=== PATIENT | male | born 1960 | race Caucasian/White ===

== ENCOUNTER 2021-06-10 12:12 | Outpatient (CLI) | payer MEDICAID, SELFPAY ==
[2021-06-10 13:37] LABS: Absolute Neutrophil Count 6.4 X10^3/uL (2.0-7.7); Eosinophil# 0.37 X10^3/uL; Eosinophils% 3.7 % (0-5); Hematocrit 42.8 % (40-54); Hemoglobin 13.6 g/dL (13.0-16.5); Mean Corp Hgb Conc 31.8 g/dL (32-36); Mean Corpuscular Hgb 21.4 pg (27.0-32.0); Mean Corpuscular Volume 67.4 fL (80-94); Mean Platelet Vol. 10.7 fl (6.2-12.0); Monocyte# 0.74 X10^3/uL; Monocyte% 7.4 % (0-10); NRBC Flagged by Analyzer 0.2 % (0-5); Neutrophil # 6.42 X10^3/uL (2.7-7.7); Neutrophil % 64.4 % (47-70); Platelet Count 331 K/mm3 (150-450); RBC Distribution Width CV 17.8 % (11.6-14.6); RBC Distribution Width SD 38.1 fl (35.1-43.9); Red Blood Count 6.35 M/mm3 (4.6-6.2)
[2021-06-10 14:02] LABS: ALB/GLOB Ratio 0.8 RATIO (0.9-2.4); AST(SGOT) 26 U/L (15-37); Alanine Aminotransfer ALT/SGPT 28 U/L (16-61); Albumin, Serum 3.6 g/dL (3.2-5.0); Alkaline Phosphatase 98 U/L (45-117); Anion Gap 6 (5-15); BUN 15 mg/dL (7-18); BUN/Creat Ratio 13.2 RATIO (10-20); Calcium,Total 8.9 mg/dL (8.5-10.1); Chloride 100 mmol/L (98-107); Cholesterol 171 mg/dL (200); Creatinine, Serum 1.14 mg/dL (0.70-1.30); EST Glomerular Filtration Rate 69 mL/min (>60); Est Glom Filt Rate - Afr Amer 84 mL/min (>60); Globulin 4.3 g/dL (2.2-4.2); Glucose 99 mg/dL (74-106); High Density Lipoprotein 45 mg/dL; Potassium 3.5 mmol/L (3.5-5.1); Protein, Total 7.9 g/dL (6.4-8.2); Sodium Level 136 mmol/L (136-145); Thyroid Stim Hormone (TSH) 1.47 uIU/mL (0.358-3.74); Triglycerides 156 mg/dL; Very Low Density Lipoprotein 31 mg/dL (5-40)
== END 2021-06-10 23:59 | disposition short-term general hospital (02) ==
LOC: LAB 12:19
PROVIDERS: Referring Provider Nurse Practitioner Adult Health; Visit Provider Nurse Practitioner Adult Health
DX: Z12.5 Encounter for screening for malignant neoplasm of prostate (principal)
CPT/HCPCS: 84153; 36415; 80053; 80061; 84443; 85025; G0103

== ENCOUNTER 2022-08-12 13:00 | Outpatient (RCR) | payer MEDICAID, SELFPAY ==
--- NOTE | 2022-06-30 15:16 | HP.SP.EV_ITS ---
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 Patient underwent total laryngectomy, right partial pharyngectomy, right wily- thyroidectomy, and right selective neck dissection levels 2?4. Pt referred for speech evaluation to address dysphagia and to assess/train in alaryngeal speech. Pt currently has PEG tube placed. He is planned for radiation beginning . 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 Patient underwent total laryngectomy, right partial pharyngectomy, right wily- thyroidectomy, and right selective neck dissection levels 2?4. Pt referred for speech evaluation to address dysphagia and to assess/train in alaryngeal speech. Pt currently has PEG tube placed. He is planned for radiation beginning . Smoking Status: Former smoker - Pain Is pain an issue with your current prescribed condition?: No Patient Allergies - Allergies Allergies No Known Allergies Allergy (Unverified 06/22/22 15:00) Subjective Dysphagia - Symptoms Reported Other: PEG tube dependence - Current Diet Solids Current Diet: Soft - Current Diet Liquids Current Liquids: Thin - NPO NPO - Alternative Nutrition Method: Gastrostomy Tube - Comments Patient Report -: No concerns for retention of food and drink. Pt unable to eat regular solids due to teeth extraction. Pt requires 2 PEG tube supplements daily. He reports yesterday consuming 2 chocolate bars, 1/2 bowl of cereal, mac n cheese, 1/2 gallon of water, and 2 cups of juice. Objective Dysphagia - Administered by Administered by: Self - Thin Liquids Administred via: Cup Oral Transit: WNL Bolus clearance: fully cleared Cough: none observed/unable to assess Patient Report: Pt reports no sensation of retention in neopharynx or esophagus. - Pureed Patient Report: Pt reports no sensation of retention in neopharynx or esophagus. - Regular Comments: Pt politely declined due to recent extraction of teeth. - Swallowing Impairment Contributing Factors to Swallowing Impairment: Mastication Inefficiency - Impact Impact on Safety & Functioning: Risk for Inadequate Nutrition/Hydration - Recommendations Modified Barium Swallow/Cookie Swallow Recommended: No Swallowing Treatment: Yes - Diet Texture Recommendations Solids: Soft & Bite sized (Level 6, Chopped) Liquids: Thin (Level 0) NPO: Alternative Nutrition/Hydration Recommended Other: Continue to supplement oral intake with PEG tube supplements as needed. Pt is following with nurse substance abuseNathalia. - Safety Saftey Precautions/Swallowing Recommendations (Check all that Apply): Small Sips & Bites when Eating, Alternate Liquids & Solids - Results Swallowing Within Normal Limits: No Swallowing Diagnosis: Oral Phase Dysphagia (R13.11) Severity: Mild Subjective Oral Motor - Subjective Patient Reports: Difficulty being Understood - Comments Comments: No facial numbness. Pt does report numbness on R anterior neck. Objective Oral Motor - Oral Status Additional: Edentulous, teeth extracted prior to initiation of radiation treatment. - Labial Impairment: WNL Observation at Rest: WNL Closure: WNL Pucker: WNL Retraction: WNL Alternating Pucker/Retraction: WNL - Lingual Impairment: WNL Protrusion: WNL Retraction: WNL Lateralization: WNL - Jaw Impairment: Mild Symmetry, Range, Strength, Tone: Did not assess jaw musculature as pt didn't want to bite down due to jaw pain likely related to recent dental work completed. Opening: Mild Opening Measurement: 33mm lip to lip - Jaw Comments Comments: Pt reports increased jaw tightness. - Respiratory Status Respiratory Status: Room Air Comments: Stoma with larytube and HME present. Swallowing Performance Scale - Swallowing Performance Scale Swallowing Performance Scale Result: 3 Mild FOIS - Functional Oral Intake Scale Tube dependent with consistent oral intake of food or liquid: Level 3 Other - Other Informal Assessment of Alaryngeal Speech -: With exception of jaw tightness, the patient demonstrated good oral motor strength, ROM, and coordination. He is currently not utilizing electrolarynx (very rarely per patient). He utilizes [employer] board and email for a majority of communication exchanges and reports that overall communication has been very challenging since total laryngectomy. [employer] provided education re: alaryngeal speech options, including electrolarynx (present for session), esophageal speech, and tracheoesophageal puncture w/ voice prosthesis. D[employer]CH[employer]IC provided education verbally and via video demonstrations. Pt reports no desire for attempting esophageal speech. He would like further training in electrolarynx (EL). Trained pt in placement options for EL in neck and with use of oral adaptor in L buccal cavity. Pt preferred use of oral adaptor in L buccal cavity. At word level, pt initially was intelligible counting 1-10 with 100% accuracy, 11-20 with 40% acc. D[employer]TER MECH[employer]IC provided the patient brief diagnostic therapy re: strategies to improve speech clarity with use of EL. Education provided verbally and via handout. Pt repeated counting 11-20 with 60% acc. Pt feels he is currently unable to use EL to participate in conversation with others. He was reluctant to respond to D[employer]TER [employer]CH[employer]IC with EL initially, but did successfully answer one question from [employer]CH[employer]IC with use of EL at the end of the evaluation. Will recommend continued training in use of EL with use of strategies to improve speech clarity to promote improved speech intelligibility and better communication abilities to meet daily, medical, and social wants and needs. Pt agreeable to recommended POC. History for Larytube, Stoma, and HME Management -: Pt currently reports no concerns for hygiene deficits re: stoma and larytube care. Stoma and larytube did present with crusted secretions in stoma around larytube. He reports cleaning stoma with a wet cloth. He reports cleaning larytube 1-2X daily with use of a brush, soap, and water. No use of water-based lubricant required to place larytube. Pt uses an HME on larytube 24 hours a day. He reports using 1-2 HMEs per day. D[employer]CH[employer]IC provided brief diagnostic education re: stoma, larytube, and HME care. Pt would benefit from continued education to promote improved management of stoma and larytube to decrease risk for infect ion. Plan - Plan Plan: Dysphagia and speech production therapy recommended to address mild oral dysphagia with current PEG tube dependence and to train pt in use of electrolarynx to address aphonia s/p total laryngectomy for cancer of the larynx. Without skilled ST services, the patient is at risk for weight loss, malnutrition, and decreased ability to communicate basic, daily, social, and medical wants and needs. - Recommendations MBS: No Treatment Warranted: Yes Treatment Warranted: Other: Comment: Training in electrolarynx for aphonia - Progress Prognosis: Good - Frequency Frequency: 1x/Week Duration: 4-6 Months - Patient/Family Goal Patient/Family Goal: Improve speech with use of electrolarynx. - Goals that are Established Determination:: Goals will be added/modified as deemed necessary and appropriate. Therapy will be discontinued when results of re-evaluation indicate therapy is no longer needed or lack of progress has been documented. - Goal #1-5 Goal #1: The patient will accurately demonstrate routine care of HME, larytube, and stoma (cleaning stoma/larytube, donning/doffing/replacing HME) to promote improved hygiene and decrease risk for infection independently. Goal #2: The patient will participate in ongoing education re: HME, larytube, and stoma management to promote improved hygiene and decrease risk for infection. Goal #3: The patient will produce word and sentence level responses with use of electrolarynx with 90% intelligibility with minimal verbal cues for use of compensatory strategies. Goal #4: The patient will utilize electrolarynx to communicate daily, medical, and social wants and needs independently. Goal #5: The patient will consume least restrictive diet textures without esophageal discomfort, sensation of stasis, or oral/nasal regurgitation with 90% accuracy with minimal verbal cues for use of compensatory strategies to improve swallow function. Education - Patient has Indicated that the Following Identified Educational Needs: None The Patient has indicated that they have no educational or learning abilities that may effect their care.: Yes - Patient Instruction Patient Education: Diagnosis, Treatment Plan, Goals Person Taught: Patient Teaching Method: Discussion, Handout Response to teaching: Return demonstration, Verbalize understanding, Reinforcement needed
== END 2022-08-12 19:00 | disposition home or self-care (01) ==
LOC: SP 13:00
PROVIDERS: Referring Provider Student in an Organized Health Care Education/Training Program; Visit Provider Student in an Organized Health Care Education/Training Program
DX: C32.9 Malignant neoplasm of larynx, unspecified (principal)
CPT/HCPCS: 92507; 92524; 92526; 92610; A4216

== ENCOUNTER 2022-09-16 14:30 | Outpatient (RCR) | payer MEDICAID, SELFPAY | END 2022-10-13 23:59 | LOC: NS 14:30 | PROVIDERS: Visit Provider Student in an Organized Health Care Education/Training Program | DX: Z71.3 Dietary counseling and surveillance (principal); C32.9 Malignant neoplasm of larynx, unspecified; R63.4 Abnormal weight loss; Z68.20 Body mass index [BMI] 20.0-20.9, adult | CPT/HCPCS: 97803 ==

== ENCOUNTER → 2022-12-13 | Outpatient (CLI) | payer MEDICAID, SELFPAY ==
--- NOTE | 2022-12-13 16:59 | CT_ITS ---
EXAM: CT CHEST WITH INTRAVENOUS CONTRAST CLINICAL INDICATION: abnormal LN on PET in chest -- eval for lesion TECHNIQUE: Helically acquired images were obtained of the chest with intravenous contrast. This CT exam was performed using one or more of the following dose reduction techniques: automated exposure control, adjustment of the mA and/or kV according to patient size, and/or use of iterative reconstruction technique. CONTRAST: IV 100mL Isovue-300 COMPARISON: PET/CT scan dated 11/29/2022 FINDINGS: LUNGS AND PLEURAL SPACES: Unremarkable. No mass. No consolidation or edema. No pleural effusion or thickening. No pneumothorax. HEART: Unremarkable. Heart size is normal. No pericardial effusion. MEDIASTINUM: Unremarkable. No mediastinal or hilar adenopathy. Esophagus is unremarkable. No hiatal hernia. THYROID: Unremarkable. No thyroid lesions. BONES/JOINTS: There are healing fractures of the anterior right fifth through seventh ribs. No suspicious lytic or blastic abnormality. SOFT TISSUES: There is a low-density lesion in the subcutaneous tissues of the right lower chest which may represent a sebaceous cyst that measures 1.5 x 2.7 cm. This showed no metabolic activity on the PET CT scan. VASCULATURE: Unremarkable. Thoracic aorta is non-dilated. No thoracic aortic dissection. No obvious central pulmonary embolism although this study was not performed with the pulmonary embolism protocol. LYMPH NODES: There is a soft tissue in the right hilum which corresponds to the focus of increased metabolic activity on the PET CT scan and measures 1.8 x 1.9 x 1.4 cm. This may represent a lymph node. TUBES, LINES AND DEVICES: Tracheostomy tube is in place. There is a percutaneous gastrostomy tube in place. CT/Chest WITH Contrast IMPRESSION: 1. Soft tissue in the right hilum which is metabolically active on PET CT scan which may represent adenopathy. There are no pulmonary abnormality. 2. Healing anterior right ribs. Electronically Signed: David Ramachandran MD at 16:34 EDT ,
[2022-12-13 17:22] LABS: CREATININE FINGERSTICK < 0.9 mg/dL (0.70-1.30); EGFR FINGERSTICK > 60.0000 mL/min (>60)
== END | disposition home or self-care (01) ==
LOC: CT 16:55
PROVIDERS: Visit Provider Student in an Organized Health Care Education/Training Program
DX: C32.9 Malignant neoplasm of larynx, unspecified (principal); R94.8 Abnormal results of function studies of other organs and systems
CPT/HCPCS: 71260; Q9967; A4216

== ENCOUNTER 2022-12-16 14:52 | Outpatient (RCR) | payer MEDICAID, SELFPAY | END 2023-01-13 23:59 | LOC: NS 14:52 | PROVIDERS: Visit Provider Student in an Organized Health Care Education/Training Program | DX: C32.9 Malignant neoplasm of larynx, unspecified (principal); R63.4 Abnormal weight loss | CPT/HCPCS: 97803 ==

== ENCOUNTER → 2023-03-04 | Outpatient (CLI) | payer MEDICAID, SELFPAY ==
--- NOTE | 2023-03-04 16:55 | CT_ITS ---
INDICATION: Right hilar abnormality follow-up, history of head and neck cancer EXAMINATION: CT CHEST WITH CONTRAST - CT Chest W/ Contrast Injection TECHNIQUE: Helically acquired images were obtained of the chest following IV contrast. A radiation dose optimization technique was used for this scan. IV Contrast dosage and agent: 100 cc Isovue-300 COMPARISON: Chest CT 12/13/2022, PET/CT 11/29/2022 FINDINGS: LUNGS, PLEURA AND LARGE AIRWAYS: Stable left apical fibrosis. No consolidations, mass lesions or suspicious nodules. Small right pleural effusion. No pneumothorax. THYROID: Right thyroidectomy changes. HEART AND PERICARDIUM: Heart size is normal. No pericardial effusion. VESSELS: Thoracic aorta is not dilated. No aortic dissection. No obvious central pulmonary embolism although this study was not performed with the pulmonary embolism protocol. MEDIASTINUM AND NÉSTOR: Right hilar lymph node measures 1.6 x 1.4 x 1.0 cm, decreased from prior measurement of 1.9 x 1.8 x 1.4 cm. No new adenopathy. Esophagus is unremarkable. No hiatal hernia. UPPER ABDOMEN: No acute pathology. PEG tube tip in the gastric lumen. BONES: Persistent healing right rib fractures #5 through 7. Cutaneous soft tissue lesion over the right lower chest anterior wall currently 2.9 cm compared to previous 2.7 cm. This lesion was not hypermetabolic on the preceding PET CT study. CT/Chest WITH Contrast IMPRESSION: Interval decrease in size of the right hilar lymph node, regression of disease. Interval development of small right pleural effusion. Electronically Signed: Abel Kumar MD at 20:24 EDT ,
--- NOTE | 2023-03-04 16:55 | CT_ITS ---
INDICATION: follow up treated head and neck cancer EXAMINATION: CT NECK WITH CONTRAST - CT Soft Tissue Neck W/ Contrast Injection TECHNIQUE: Helically acquired images were obtained of the neck following IV contrast. A radiation dose optimization technique was used for this scan. IV Contrast dosage and agent: 100 cc Isovue-300 RADIATION DOSAGE (If Supplied By Facility): CTDIvol = ( 10.02 ) mGy, DLP = ( 879.84 ) mGycm COMPARISON: Prior study dated: PET/CT scan 11/29/2022 FINDINGS: NASOPHARYNX: Unremarkable. SUPRAHYOID NECK: Unremarkable oropharynx, oral cavity, parapharyngeal space, and retropharyngeal space. INFRAHYOID NECK: Laryngectomy changes. Multiple surgical clips present. No enhancing masses. THYROID: Right lobe thyroid absent. SALIVARY GLANDS: Right submandibular gland absent. LYMPH NODES: No cervical or supraclavicular lymphadenopathy. VASCULAR STRUCTURES: Unremarkable. VISUALIZED PORTIONS OF THE ORBITS, PARANASAL SINUSES, MASTOID AIR CELLS AND SKULL BASE: Ethmoid and maxillary sinus mucoperiosteal disease. BONES: Mild degenerative changes. THORACIC INLET: Stable fibrosis left apex medially. CT/Soft Tissue Neck WITH Contrast IMPRESSION: Surgical changes from laryngectomy and right sided neck dissection. No findings suspicious for metastatic disease and no significant interval change from the reference PET/CT study. Electronically Signed: Abel Kumar MD at 19:53 EDT ,
[2023-03-04 17:17] LABS: CREATININE FINGERSTICK < 0.9 mg/dL (0.70-1.30); EGFR FINGERSTICK > 60.0000 mL/min (>60)
== END | disposition home or self-care (01) ==
LOC: CT 16:51
PROVIDERS: Referring Provider Student in an Organized Health Care Education/Training Program; Visit Provider Student in an Organized Health Care Education/Training Program
DX: C32.9 Malignant neoplasm of larynx, unspecified (principal); C77.9 Secondary and unspecified malignant neoplasm of lymph node, unspecified; R94.8 Abnormal results of function studies of other organs and systems
CPT/HCPCS: 70491; 71260; Q9967

== ENCOUNTER 2023-03-08 15:06 | Outpatient (RCR) | payer MEDICAID, SELFPAY | END 2023-03-15 23:59 | LOC: NS 15:06 | PROVIDERS: Visit Provider Student in an Organized Health Care Education/Training Program | DX: Z71.3 Dietary counseling and surveillance (principal); C32.9 Malignant neoplasm of larynx, unspecified; R63.4 Abnormal weight loss; Z93.1 Gastrostomy status | CPT/HCPCS: 97803 ==

== ENCOUNTER 2023-04-19 10:54 | Outpatient (RCR) | payer MEDICAID, SELFPAY ==
--- NOTE | 2023-04-12 10:52 | HP.SP.DC ---
Discharge Summary Discharged: Discharge: Patient was evaluated by OP ST 06/30/2022 for dysphagia and speech production therapy to address mild oral dysphagia with current PEG tube dependence and to train pt in use of electrolarynx to address aphonia s/p total laryngectomy for cancer of the larynx. He attended 3 sessions from 07/07/2022 to 08/26/2022, and has not returned for additional visits. Per most recent radiation oncology follow-up, he has no additional speech therapy needs and has not returned emails from RN about re-scheduling with . Will discharge the patient from at this time. Please re-consult if the patient requires additional training in alaryngeal speech or worsening dysphagia.
== END 2023-04-19 10:55 | disposition home or self-care (01) ==
LOC: OT 10:54
PROVIDERS: Referring Provider Student in an Organized Health Care Education/Training Program; Visit Provider Student in an Organized Health Care Education/Training Program
DX: I89.0 Lymphedema, not elsewhere classified (principal)

== ENCOUNTER → 2023-08-03 | Outpatient (CLI) | payer MEDICAID, SELFPAY ==
[2023-08-03 15:18] LABS: Platelet Count 168 K/mm3 (150-450)
[2023-08-03 15:23] LABS: International Normalized Ratio 1.1; Prothrombin Time (Protime)PT. 13.8 SECONDS (11.7-14.9)
[2023-08-03 15:50] LABS: Partial Thromboplast Time < 24.0 Seconds (24.1-36.2)
== END | disposition home or self-care (01) ==
LOC: LAB 14:27
PROVIDERS: Referring Provider Nurse Practitioner Acute Care; Visit Provider Nurse Practitioner Acute Care
DX: R06.00 Dyspnea, unspecified (principal); I48.91 Unspecified atrial fibrillation
CPT/HCPCS: 36415; 85049; 85610; 85730

== ENCOUNTER → 2023-10-07 | Outpatient (CLI) | payer MEDICARE, MEDICAID, SELFPAY ==
--- NOTE | 2023-10-07 15:07 | CT_ITS ---
INDICATION: follow up PET abnormality -- compare to prior EXAMINATION: CT NECK WITH CONTRAST - CT Maxillofacial and Neck W/ Contrast Injection COMPARISON: Neck CT 03/12/2023. PET/CT 06/21/2023 as well as 11/29/2022.. Findings: Contrast enhanced serial CT axial images through the orbits, extending through the face and neck with coronal and sagittal reformatted series. IV Contrast dosage and agent: 75 cc Isovue-370 IV. SKULL BASE: Visualized brain parenchyma is unremarkable. ORBITS: No obvious acute globe abnormality. No infiltration the orbital fat. SOFT TISSUES: No obvious vascular abnormality. Bilateral post procedure dissection changes with numerous surgical clips and distortion of soft tissue planes. Tracheostomy tube is in place. Stable hazy fat stranding of the deep tissues of the neck, likely scarring. There is a small ovoid asymmetric soft tissue density measuring 6 x 9 mm (just posterior to muscle abutting the posterior jugular vein at the level of C1 lateral mass and caudal aspect of the mastoid process) on axial image 74 of series 2, which appears to correlate with focal increased FDG avidity on recent PET/CT of 3 months prior. However, this same soft tissue abnormality was seen on neck CT of February 2023. No focal fluid collection. Stable anterior right upper lobe 5 mm groundglass pulmonary nodule on axial image 7 of series 2, stable from only 10 months prior. OSSEOUS STRUCTURES: No TMJ subluxation. Moderate to severe multilevel bilateral neuroforaminal narrowing. There is also at least moderate central bony spinal canal stenosis at the C3-C4 and C5-C6 levels. Pansinus mucosal thickening with numerous bilateral maxillary sinus retention cysts. No evidence of cervical spine fracture or subluxation. No concerning bony lesion or abnormal sclerosis to suggest lesion. CT/Soft Tissue Neck WITH Contrast IMPRESSION: 6 x 9 mm ovoid ASYMMETRIC soft tissue density as described above which appears to correlate with focal increased FDG avidity on recent PET/CT of 3 months prior. However, this focal soft tissue asymmetry was seen on neck CT of February 2023 (although without previous FDG avidity seen). While this may represent focal subcentimeter reactive lymph node or muscular inflammatory focus, cannot exclude early recurrent FDG avid metastatic focus. Stable 5 mm pulmonary nodule, stable from only 10 months prior. Neuroforaminal narrowing and central bony spinal canal stenosis. Sinus disease. Electronically Signed: Davidson Jack MD at 3:46 EDT ,
[2023-10-07 15:33] LABS: CREATININE FINGERSTICK < 1.0 mg/dL (0.70-1.30); EGFR FINGERSTICK > 60.0000 mL/min (>60)
== END | disposition home or self-care (01) ==
PROVIDERS: Referring Provider Student in an Organized Health Care Education/Training Program; Visit Provider Student in an Organized Health Care Education/Training Program
DX: C32.9 Malignant neoplasm of larynx, unspecified (principal)
CPT/HCPCS: 70491; Q9967

== ENCOUNTER 2024-09-10 11:42 | Day surgery (SDC) | payer MEDICARE, MEDICAID, SELFPAY ==
--- NOTE | 2024-09-10 12:08 | PCM.PRE.AN2 ---
ASA Classification* ASA Classification ASA Classification: 3 Assessment & Plan Anesthesia* Anesthesia Assessment Anesthesia Assessment: Discussed sedation and/or anesthesia options, risks, benefits, and alternatives with patient/parents/legal guardian/POA. Questions invited. The patient/parents/legal guardian/POA seems to understand and agrees to proceed with anesthesia plan. Reviewed the physical assessment, medical history, allergy history and patient home medications list prior to surgery/procedure/anesthetic and documented any changes. Performed airway and anesthesia risk assessments. Anesthesia Type Anesthesia Type: MAC Anesthesia Focused Assessment* Airway Assessment Mouth opens: >3 cm Mallampati Score: II Focused Labs Anesthesia Preop lab: CBC WBC 6.1 K/mm3 (4.4-11.0) 09/03/24 12:48 09/03/24 RBC 3.19 M/mm3 (4.6-6.2) L 09/03/24 12:48 09/03/24 Hgb 8.4 g/dL (13.0-16.5) L 09/03/24 12:48 09/03/24 Hct 24.8 % (40-54) L 09/03/24 12:48 09/03/24 Plt Count 270 K/mm3 (150-450) 09/03/24 12:48 09/03/24 CHEMISTRY Potassium 3.1 mmol/L (3.3-5.1) L 09/03/24 12:48 09/03/24 Sodium 142 mmol/L (133-145) 09/03/24 12:48 09/03/24 Magnesium 2.0 mg/dL (1.6-2.6) 06/22/22 15:45 06/22/22 Phosphorus 2.5 mg/dL (2.7-4.5) L 09/03/24 12:48 09/03/24 BUN 8 mg/dL (4-19) 09/03/24 12:48 09/03/24 Creatinine 0.94 mg/dL (0.70-1.20) 09/03/24 12:48 09/03/24 Glucose 84 mg/dL (70-99) 09/03/24 12:48 09/03/24 TSH 139.000 uIU/mL (0.300-4.200) H 09/03/24 12:48 09/03/24 COAG PT 13.8 SECONDS (11.7-14.9) 08/03/23 14:31 08/03/23 Pre-Assessment Diagnosis/Proposed Procedure Planned Operative Procedure(s): Insertion vasular port Anesthesia History Anesthesia History - 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 When Was Last Pacemaker Check QUESTION #4 FULL TEXT: You/Your Family Experience fever (hyperthermia) with Anesthesia Last Oral Intake Last Oral intake: Last Oral Intake NPO since Meds taken in AM with sips of water? Meds patient instructed to take am of surgery PONV PONV - profile stitching machine operator: PONV - profile stitching machine operator Female HX of Motion Sickness HX of N/V After Surgery Non-Smoker Duration of Surgery greater than 60 minutes Number of Risk Factors PONV Score Height & Weight Height & Weight: Anesthesia: Height & Weight Height 5 ft 7 in 09/03/24 13:07 Weight: 79.379 kg 08/15/24 08:48 Respiratory Assessment Respiratory Assessment - profile stitching machine operator: Respiratory Tract Infection Hx - profile stitching machine operator Hx Respiratory Tract Infection STOP Sleep Apnea STOP Sleep Apnea - profile stitching machine operator: STOP Sleep Apnea - profile stitching machine operator Hx Hypertension Hx Sleep Apnea CPAP BIPAP Do you snore loudly (louder than talking or can be heard Do you often feel tired/ fatigued/ sleepy during daytime? Has anyone observed you stop breathing during sleep? STOP Results QUESTION #5 FULL TEXT : Do you snore loudly (louder than talking or can be heard through closed doors)? Tobacco Use History Tobacco Use History - profile stitching machine operator: Tobacco Use History - profile stitching machine operator Tobacco Use Smoking Status Former smoker 09/04/24 09:01 Hx Tobacco Use Years Smoking Packs Smoked per Day Smoking Cessation Date was within the last 15 years Hx Smoking Cessation Date Hx Smoking Cessation Counseling Hematologic Medial History Hematologic Hx - profile stitching machine operator: Hematologic Medical Hx - motor tester Hx of Blood Transfusion Hx of Transfusion in last 3 Months Date of Last Transfusion (if within last 3 months) Ever experience any problems with transfusion(s)? Specify any problems Hx of Preganancy in last 3 Months Nurse Filling Out Transfusion & Questions: Date: Time: Patient unable to answer at this time (ie. confused, unrespo /Reproduction History /Reproductive History - profile stitching machine operator: /Reproductive Hx- profile stitching machine operator Hx Now Gestational Age (in weeks): EDC: Hx Hx Para Hx Section SAB Active Medications Active Medications: Current Medications Generic Name Dose Route Start Last Admin Trade Name Freq PRN Reason Stop Dose Admin Cefazolin Sodium 2 gm/ N/A 20 mls @ 400 mls/hr 09/10/24 14:00 IV 09/10/24 14:02 INTRAOP ONE Lactated Ringer's 1,000 mls @ 15 mls/hr 09/10/24 12:00 IV .Q48H [facility] Medical History Encounter for antineoplastic immunotherapy Anemia Encounter for education Metastasis to mediastinal lymph node Metastasis to lung Thalassemia trait Regional lymph node metastasis present Dysphagia Malnutrition Hematoma Tracheostomy in place PEG (percutaneous endoscopic gastrostomy) adjustment/replacement/removal Airway obstruction HTN (hypertension) COPD (chronic obstructive pulmonary disease) Laryngeal cancer Home Medications ?Medication ?Instructions ?Recorded ?Last Taken ?Type acetaminophen 160 mg/5 mL (5 mL) 640 mg PO Q4H PRN 05/31/22 Unknown History oral solution amlodipine 10 mg tablet 10 mg PO DAILY 05/31/22 Unknown History chlorpheniramine 2 mg-DM 10 1 tab PO Q4H PRN 05/31/22 Unknown History mg-acetaminophen 325 mg tablet hydroxyzine HCl 25 mg tablet 25 mg PO QHS 05/31/22 Unknown History metoprolol tartrate 25 mg tablet 25 mg PO DAILY 05/31/22 Unknown History miscellaneous medical supply 05/31/22 Unknown History famotidine 20 mg tablet 20 mg PO DAILY 12/02/22 Unknown History (Zantac-360 (famotidine)) mirtazapine 15 mg tablet 45 mg PO QHS 07/29/23 Unknown History quetiapine 50 mg tablet 25 mg PO QHS 07/29/23 Unknown History sertraline 100 mg tablet 150 mg PO DAILY 07/29/23 Unknown History lidocaine-prilocaine 2.5 %-2.5 % 1 applic topical ONCE PRN Port 07/31/24 Unknown Rx topical cream access 30 days #30 grams potassium chloride 20 mEq/15 mL 10 meq (7.5 mL) PO QDAY #450 mL 09/03/24 Unknown Rx oral liquid Allergy/AdvReac Type Severity Reaction Status Date / Time No Known Allergies Allergy Verified 09/03/24 13:14 Family History Uncle Laryngeal cancer maternal Surgical History History of bronchoscopy H/O partial laryngectomy S/P laryngectomy Social History Smoking Status: Former smoker Tobacco: How many years used: 30 how long ago did patient quit smokin years ([id number]) alcohol intake: current alcohol intake frequency: a few times a week substance use type: does not use Review of Systems (Anesthesia) ROS Narrative System reviewed and no additional complaints, except as documented.
[2024-09-10 12:09] VITALS: BP 123/72; PULSE 79; RESP 16; TEMP 36.2; O2SAT 100; BMI 22.6
--- NOTE | 2024-09-10 12:10 | HP.PCM.SX_ITS ---
HPI - General General Date of Service: 09/10/24 HPI Narrative DEMETRIUS BARLOW, is a 63 M who presents for port placement. Patient did have his first treatment and is scheduled for another treatment in 2 weeks due to metastatic squamous cell carcinoma of the larynx to the lungs. 07/30/2024 office visit HPI HPI: 63-year-old male presents for port placement. Plan to start treatment mid August. Patient previously had trach and laryngectomy due to squamous cell carcinoma and has new metastatic disease to lungs. Patient mostly communicates by writing on a board. [facility] Medical History Encounter for antineoplastic immunotherapy Anemia Encounter for education Metastasis to mediastinal lymph node Metastasis to lung Thalassemia trait Regional lymph node metastasis present Dysphagia Malnutrition Hematoma Tracheostomy in place PEG (percutaneous endoscopic gastrostomy) adjustment/replacement/removal Airway obstruction HTN (hypertension) COPD (chronic obstructive pulmonary disease) Laryngeal cancer Home Medications ?Medication ?Instructions ?Recorded ?Last Taken ?Type acetaminophen 160 mg/5 mL (5 mL) 640 mg PO Q4H PRN Unknown History oral solution amlodipine 10 mg tablet 10 mg PO DAILY 05/31/22 Unkn own History chlorpheniramine 2 mg-DM 10 1 tab PO Q4H PRN 05/31/22 Unknown History mg-acetaminophen 325 mg tablet hydroxyzine HCl 25 mg tablet 25 mg PO QHS 05/31/22 Unk nown History metoprolol tartrate 25 mg tablet 25 mg PO DAILY Unknown History miscellaneous medical supply 05/31/22 Unknown History famotidine 20 mg tablet 20 mg PO DAILY 12/02/22 Unkn own History (Zantac-360 (famotidine)) mirtazapine 15 mg tablet 45 mg PO QHS 07/29/23 Unknow n History quetiapine 50 mg tablet 25 mg PO QHS 07/29/23 Unknow n History sertraline 100 mg tablet 150 mg PO DAILY 07/29/23 Unk nown History lidocaine-prilocaine 2.5 %-2.5 % 1 applic topical ONCE PRN Port 07/31/24 Unknown Rx topical cream access 30 days #30 grams potassium chloride 20 mEq/15 mL 10 meq (7.5 mL) PO QDA Y #450 mL 09/03/24 Unknown Rx oral liquid Allergy/AdvReac Type Severity Reaction Status Date / Time No Known Allergies Allergy Verified 09/03/24 13:14 Family History Uncle Laryngeal cancer maternal Surgical History History of bronchoscopy H/O partial laryngectomy S/P laryngectomy Social History Smoking Status: Former smoker Tobacco: How many years used: 30 how long ago did patient quit smokin years ([id number]) alcohol intake: current alcohol intake frequency: a few times a week substance use type: does not use Vital Signs Vital Signs Vital Signs: Weight Weight: 175 lb Physical Exam Const alert, oriented x3 and no apparent distress HEENT normocephalic HEENT Narrative: Trach in place, well-healed previous neck incisions. Cardio regular rate GI Negative for non-distended Skin no rashes or lesions noted Neuro CN's II-XII intact bilaterally Psych mental status grossly normal Assessment & Plan Assessment/Plan (1) Primary squamous cell carcinoma of larynx: (2) Encounter for insertion of venous access port: PLAN: Plan I have discussed above with the patient- Port-a-Cath placement. Right possible left IJ Patient has been counseled as to the risks/benefits of the procedure. I have explained the risks of the surgery, including but not limited to: infection, bleeding, injury to any blood vessels/nerves, injury to lungs (such as pneumothorax or hemothorax and need for chest tube), not having any access, nonfunctioning of port due to thrombosis, infection of port, etc. the patient understands and agrees to proceed. I have answered all the patient's questions to the patient?s satisfaction and the patient has no further questions. Christiana Huber M.D. Pager: [phone] [facility] [address] [place] [address], [address] [place] [address] Office: [phone]
[2024-09-10] MEDS: Lactated Ringers 1,000 ML 15 ML IV (12:39)
[2024-09-10] MEDS: Cefazolin 2 GM in Syringe IV (13:35)
[2024-09-10] MEDS: Lidocaine 1% /Epi 1:100 (20ml) 20 ML Vial (13:39)
[2024-09-10] MEDS: Bupivacaine Mpf 0.5% 30 ML VIAL (13:39)
--- NOTE | 2024-09-10 13:53 | OP.PCM_ITS ---
Operative Report (Standard) Operative Information Date of Procedure: 09/10/24 Pre-Operative Diagnosis: Z45.2, metastatic squamous cell carcinoma of larynx Post-Operative Diagnosis: Same Surgery/Procedure Performed: Placement of right IJ Port-A-Cath, Use of ultrasound, Use of fluoroscopy director of market intelligence: No Type of Anesthesia: Local MAC RN Documented Start/Stop Times: Operation Date: 09/10/24 14:00 Case Time Into Pre-Op 09/10/24 11:56 Anesthesia Start 09/10/24 13:05 Into Room 09/10/24 13:05 Out of Pre-Op 09/10/24 13:05 Procedure Start 09/10/24 13:21 Procedure End 09/10/24 13:49 Anesthesia End 09/10/24 13:53 Out of Room 09/10/24 13:53 Into Recovery 09/10/24 13:58 Procedure Start Time: 13:21 Procedure Stop Time: 13:49 Select all DRAINS/GRAFTS/IMPLANTS that apply: Implanted device Implanted device details: 6 Telugu BARD Port-A-Cath Special Medications: Ancef 2 g IV x 1 Estimated Blood Loss: < 10 cc Specimen collected: No Description of surgery: After informed consent was given, the patient was brought to the operating room and placed in the supine position. Appropriate time out protocol was followed. Patient was then given IV conscious sedation for anesthesia. The patient's right upper chest and neck were then prepped with a surgical skin preparation and sterile surgical drapes were placed. After proper landmarks were ascertained, the skin at the upper right chest area was then infiltrated with 1:1 mixture of 1% lidocaine with epinephrine and 0.5% marcaine. A needle trocar was then inserted into the right internal jugular vein with ultrasound guidance-multiple vessels were viewed with u/s and the right IJ was chosen-- and there was good aspiration of venous blood. A wire was then threaded into the needle trocar and this was visualized under fluoroscopy to ensure that the wire was in the superior vena cava. Once this was done, then the needle trocar was removed. A small skin anh was made with an 11 blade knife at the wire entrance site. The dilator with the introducer sheath attached was then placed over the wire into the right internal jugular vein via the Seldinger technique and this was visualized under fluoroscopy. The dilator and sheath were in proper position as visualized by fluoroscopy. A subcutaneous pocket was then created caudad to the catheter insertion site. A transverse skin incision was made after the skin and subcutaneous tissues were infiltrated with local anesthetic. Blunt dissection was then used to create a space large enough for placement of the subcutaneous port. The catheter was then tunneled into the subcutaneous pocket. The wire and dilator were then removed. The catheter was then threaded into the introducer sheath and was positioned with its tip at the junction of the superior vena cava and the right atrium as visualized under fluoroscopy. The excess catheter was transected. The catheter was then attached to the subcutaneous port using manufacturers guidelines. The catheter was flushed with a heparin saline mixture prior to placement. Hemostasis was carefully controlled with electrocautery. The port was sutured to the subcutaneous fascia using 2-0 Vicryl suture at two sites. The port was then placed in the subcutaneous pocket. The incision were reapproximated with interrupted subdermal 3-0 vicryl sutures. The skin was reapproximated with 3-0 nylon suture in a interrupted fashion. Steristrips were used for reinforcement of the skin closure at IJ insertion site and a sterile opsite dressings were applied. The patient tolerated the procedure well. Implants Used: Bard PowerPort isp M.R.I. 6Fr Lot [] Surgical Findings: see operative note Complications Complications: No
--- NOTE | 2024-09-10 13:55 | DCINST_ITS ---
Discharge Instructions Procedure Port-A-Cath Diet Discharge Diet: Light diet - advance as tolerated Activity May shower in (days): 5 (Keep port site clean and dry x5 days. Neck incision okay to get wet after 1 day. Okay to lower shower and upper sponge bath. OR okay to taper off port site with a Ziploc bag to shower) Lifting Restrictions: No lifting > 15 pounds for 3 days with the arm on the side of the port Dressing / Incision Call your doctor if your incision/area has: Continuous Slow Oozing, Sudden Increased Bleeding, Increased Pain/ Swelling, Increased Redness, Foul Smelling Discharge and Swelling at the incision site Call your doctor if you observe: Fever of 101 or Higher Change Dressing in: 2 days (2-3 days- port site; ok to remove neck opsite in 1 day) Follow Up Care Please Follow Up With: Chrsitiana Huber MD When: In 10 days for permanent suture removal?call office for appointment Test Results: Test results from this visit will be discussed in further detail at your follow- up appointment, if applicable. Discharge Plan Admission Attending Provider: Christiana Huber [facility] Inst[facility] Print Language: Guinean Discharge Orders/Prescriptions Prescriptions: New tramadol 50 mg tablet 50 mg PO Q6H PRN (Reason: pain) 2 Days Qty: 5 0RF Continued amlodipine 10 mg tablet 10 mg PO DAILY (DME) miscellaneous medical supply Misc See Rx Instructions .Route Rx Instructions: As directed hydroxyzine HCl 25 mg tablet 25 mg PO QHS metoprolol tartrate 25 mg tablet 25 mg PO DAILY acetaminophen 160 mg/5 mL (5 mL) solution 640 mg PO Q4H PRN [id number] 2-10-325 mg tablet 1 tab PO Q4H PRN famotidine [Zantac-360 (famotidine)] 20 mg tablet 20 mg PO DAILY sertraline 100 mg tablet 150 mg PO DAILY quetiapine 50 mg tablet 25 mg PO QHS Rx Instructions: 2-3 tablets at bedtime mirtazapine 15 mg tablet 45 mg PO QHS lidocaine-prilocaine 2.5-2.5 % cream 1 applic topical ONCE PRN (Reason: Port access) 30 Days Qty: 30 2RF potassium chloride 20 mEq/15 mL liquid 10 meq PO QDAY Qty: 450 0RF Referrals [facility]: [facility] - Disposition Disposition (needs filled in before D/C Order can be placed): Home, Self Care
[2024-09-10 13:58] VITALS: BP 115/67; BP 123/72; BP 137/62; PULSE 66; PULSE 75; RESP 18; TEMP 36.4; O2SAT 100
--- NOTE | 2024-09-10 13:59 | PCM.POST.ANE ---
Anesthesia: Postop Eval I Current Vital Signs Temperature: 97.6 F Pulse Rate: 75 Blood Pressure: 115/67 Respiratory Rate: 20 Pulse Ox: 100 Oxygen Delivery Method: Room Air Assessment Airway patent: Yes Spontaneous unlabored respirations: Yes Mental status: Awake nausea: No Vomiting: No Anesthesia Complication: No Fluid Hydration Crystalloid volume administer (ml): 300 Total IV fluid infused: 300 Progress Note Anesthesia document: Postop Eval 1 completed: Yes
[2024-09-10 14:00] VITALS: BP 115/67; PULSE 75; RESP 20; TEMP 36.4; O2SAT 100
--- NOTE | 2024-09-10 14:00 | RAD_ITS ---
PROCEDURE: CHEST 1 VIEW (PORTABLE) 09/10/2024 REASON FOR EXAM: PORT TECHNIQUE: Frontal view of the chest. COMPARISON: None FINDINGS: There is a Port-A-Cath in position on the right with its tip in the superior vena cava above the right atrium. Heart size is within normal limits. Central vascularity is normal. There is right perihilar infiltrate. There is no pneumothorax or effusion. There is no acute bony abnormality. Surgical clips are noted in the right neck. RAD/Chest 1 View (Portable) IMPRESSION: There is right perihilar infiltrate. Reading Location: [facility]
[2024-09-10 14:13] VITALS: BP 116/69; BP 123/72; PULSE 66; RESP 18; TEMP 36.1; O2SAT 99
[2024-09-10 14:40] VITALS: BP 123/72
--- NOTE | 2024-09-10 14:51 | POSTOPAN2_ITS ---
Anesthesia Postop Eval I Sum Postop Eval Completion status Anesthesia document: Postop Eval 1 completed: Yes Anesthesia Postop Eval I Summary Anesthesia Postop Eval I Summary: Anesthesia Postop Eval I: Assessment Summary Airway patent Yes 09/10/24 14:00 [email or web address] [email or web address] Spontaneous unlabored Yes 09/10/24 14:00 [email or web address] [email or web address] respirations Mental status Awake 09/10/24 14:00 [email or web address] nausea No 09/10/24 14:00 [email or web address] Vomiting No 09/10/24 14:00 [email or web address] Anesthesia Postop Eval I: Fluid Summary Crystalloid volume administer 300 09/10/24 14:00 [email or web address] (ml) Colloids volume administered ( ml) Blood Product volume administered (ml) Total IV fluid infused 300 09/10/24 14:00 [email or web address] Anesthesia Postop Eval I: Summary Notes Anesthesia Complication No 09/10/24 14:00 [email or web address] Anesthesia Complication Comment: Post-operative progress note Anesthesia: Postop Eval II Evaluation Mental status: Awake Pain Level: 0 nausea: No Vomiting: No
--- NOTE | 2024-09-10 14:51 | PCM.POSTANE2 ---
Anesthesia Postop Eval I Sum Postop Eval Completion status Anesthesia document: Postop Eval 1 completed: Yes Anesthesia Postop Eval I Summary Anesthesia Postop Eval I Summary: Anesthesia Postop Eval I: Assessment Summary Airway patent Yes 09/10/24 14:00 [email or web address] Spontaneous unlabored Yes 09/10/24 14:00 [email or web address] respirations Mental status Awake 09/10/24 14:00 [email or web address] nausea No 09/10/24 14:00 [email or web address] Vomiting No 09/10/24 14:00 [email or web address] Anesthesia Postop Eval I: Fluid Summary Crystalloid volume administer 300 09/10/24 14:00 [email or web address] (ml) Colloids volume administered ( ml) Blood Product volume administered (ml) Total IV fluid infused 300 09/10/24 14:00 [email or web address] Anesthesia Postop Eval I: Summary Notes Anesthesia Complication No 09/10/24 14:00 [email or web address] Anesthesia Complication Comment: Post-operative progress note Anesthesia: Postop Eval II Evaluation Mental status: Awake Pain Level: 0 nausea: No Vomiting: No
== END 2024-09-10 15:11 | disposition home or self-care (01) ==
LOC: SDC 11:44 → AC 11:44
PROVIDERS: Referring Provider Surgery; Visit Provider Surgery
PROC: (CPT 36561; principal; 2024-09-10 13:45)
DX: Z45.2 Encounter for adjustment and management of vascular access device (principal); C78.01 Secondary malignant neoplasm of right lung; C78.02 Secondary malignant neoplasm of left lung; Z93.0 Tracheostomy status; C32.9 Malignant neoplasm of larynx, unspecified; J44.9 Chronic obstructive pulmonary disease, unspecified; Z87.891 Personal history of nicotine dependence
CPT/HCPCS: 36561; 00532; 71045; 77001

== ENCOUNTER 2024-09-24 14:30 | Outpatient (RCR) | payer MEDICARE, MEDICAID, SELFPAY ==
--- NOTE | 2024-09-04 08:59 | HP.SP.EVAL ---
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 From 07/07/2022 ? 08/20/2022 he received adjuvant radiation therapy. Patient declined chemosensitization with cisplatin. He attended 3 speech therapy sessions from 07/07/2022 to 08/26/2022 and has not returned for additional visits. During these sessions, the patient was trained in use of an electrolarynx (EL), but he has not used the EL since treatment. He did not pursue a voice prosthesis due to the follow-up required to manage the prosthesis. He is now recommended for AAC evaluation by speech therapy to trial a speech-generating communication device as currently all his communication is gestural, via writing, or via typing email. 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 PMH: Metastasis to mediastinal lymph node, Metastasis to lung, Thalassemia trait, Regional lymph node metastasis present, Dysphagia, Malnutrition, Hematoma, Tracheostomy in place, PEG (percutaneous endoscopic gastrostomy) adjustment/replacement/removal, Airway obstruction, HTN (hypertension), COPD (chronic obstructive pulmonary disease), Laryngeal cancer - See EMR for full PMH. Smoking Status: Former smoker Pain Is pain an issue with your current prescribed condition?: No Personal Preferred language: Sudanese Patient Allergies Allergies Allergies: Allergies No Known Allergies Allergy (Verified 09/03/24 13:14) Subjective AAC AAC Subjective: Patient primarily utilizes a Boogie board for any in-person written communication. He also uses head nods and gestures for simple communication. He will attempt to mouth words, but this approach to communication has limited success. He is unable to communicate w/ his brother who can't read. He would like to be able to communicate via phone calls. Currently, he coordinates all doctor's appointments via email. Objective AAC AAC Objective: Mental status: Alert, Cooperative, Responsive. Vision status: Glasses. Able to read fairly small font sizes per patient report. Hearing status: WNL. Physical abilities: Uses a cane to ambulate. No fine motor impairments per patient report. Status of communication abilities: Motor speech - WNL Voice - Aphonic s/p total laryngectomy Spoken Language comprehension - WNL Spoken Language expression - WNL Reading - WNL Writing - WNL Lingraphica Speech Generating Device: The INSTRUCTOR PAINTING provided training in the Talk and Type (or handwrite via stylus) apps of this device. With minimal to moderate verbal and visual instruction, he demonstrated the ability to introduce himself, provide personal information (, address), and write simple communication exchanges via keyboard or stylus. Use of stylus was a faster way to respond as opposed to typing. INSTRUCTOR PAINTING did show the patient that an external keyboard could be used via bluetooth if the patient prefers typing. INSTRUCTOR PAINTING also trained him in navigating device settings and editing speaking cards for patient customization. Patient requires additional training in the device, but today he demonstrated a good understanding of basic device navigation and he used the device to answer the INSTRUCTOR PAINTING in simple conversation (e.g. What did you do today? How are you doing? Tell me your name and .). The patient was very interested in continued training in use and customization of the device to meet his communication needs. Reference: Neuro-QoL instrument Radiation Oncology Patient Plan Recommendations Treatment Warranted: Yes Treatment Warranted: Other: Comment: Augmentative and Alternative Communication therapy w/ use of a speech generating device Progress Prognosis: Good Frequency Frequency: 1x/Week Duration: 2-4 Months Patient/Family Goal Patient/Family Goal: Speak on the telephone, Speak with his brother who can't read Goals that are Established Determination:: Goals will be added/modified as deemed necessary and appropriate. Therapy will be discontinued when results of re-evaluation indicate therapy is no longer needed or lack of progress has been documented. Goal #1-5 Goal #1: (LTG 1.0) The patient will participate in communication exchanges with his brother, medical staff, and other familiar listeners in-person or via telephone w/ independent use of the speech-generating device with 90% acc to meet social and medical wants and needs. Goal #2: (STG 1.1) The patient will demonstrate knowledge of general settings, charging, and other basic item maintenance for speech-generating device with minimal verbal assistance from the INSTRUCTOR PAINTING. Goal #3: (STG 1.2) The patient will demonstrate ability to create and utilize speech cards/icons on the speech-generating device to communicate introductions, medical questions, and basic conversational responses independenty. Goal #4: (STG 1.3) The patient will demonstrate the ability to respond in conversation with the write/type mark on the speech-generating device to create spontaneous responses in conversation independently. Education Patient has Indicated that the Following The Patient has indicated that they have no educational or learning abilities that may effect their care.: Yes Patient Instruction Patient Education: Treatment Plan and Goals Person Taught: Patient Teaching Method: Discussion, Demonstration and Teach Back Response to teaching: Return Demonstration, Verbalize Understanding and Reinforcement Needed
--- NOTE | 2025-01-04 14:58 | HP.SP.DC ---
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 The patient attended 1 additional speech therapy session. He was granted insurance approval for the speech generating device. Since his 1 follow up session, he has not returned to speech therapy as he does not feel he requires additional instruction in use of speech generating device. He will be discharged from OP ST at this time; however, if pt requires further instruction or training in use of device for functional tasks, such as phone calls, please re-consult speech therapy.
== END 2024-09-24 19:00 | disposition home or self-care (01) ==
LOC: SP 14:30
PROVIDERS: Referring Provider Student in an Organized Health Care Education/Training Program; Visit Provider Student in an Organized Health Care Education/Training Program
DX: C32.9 Malignant neoplasm of larynx, unspecified (principal); R49.1 Aphonia
CPT/HCPCS: 92607; 92609

== ENCOUNTER → 2024-09-27 | Outpatient (CLI) | payer MEDICARE, MEDICAID, SELFPAY ==
--- NOTE | 2024-09-27 15:03 | CT_ITS ---
PROCEDURE: CHEST WITH CONTRAST 09/27/2024 REASON FOR EXAM: LARYNX CA MET TO LUNG TECHNIQUE: Prone and supine chest CT with intravenous contrast, high resolution CT (HRCT) protocol. Coronal and Sagittal reconstruction series were provided. CONTRAST: Isovue 370 VOLUME: 100 mL One or more dose reduction techniques were used (e.g., Automated exposure control, adjustment of the mA and/or kV according to patient size, use of iterative reconstruction technique). RADIATION DOSE SUMMARY: CTDlvol: 11.2 mGy DLP: 384.47 mGycm COMPARISON: Comparison is made with prior study dated March 29, 2024. FINDINGS: Hardware: Right-sided port a catheter is seen with the tip in the superior vena cava. Postsurgical changes are seen in the trachea with evidence of a tracheostomy tube placement. Lymph nodes: Enlarged right hilar lymph node measuring 3.6 cm by 2.7 cm. Heart and Vasculature: Coronary artery calcifications are noted. Lungs and Airways: Increased size of the right lower lobe pulmonary nodule presently measuring 2.2 cm by 1.9 cm. Small right pleural effusion. Pleura: Small right pleural effusion. Upper Abdomen: Diffuse fatty infiltration of the liver. Small gallstones in the contracted gallbladder. Bones: Degenerative changes of the thoracic spine. CT/Chest WITH Contrast IMPRESSION: Enlargement of the right hilar lymph node as well as enlarging nodule in the ri ght lower lobe as described. Fatty infiltration of the liver. Reading Location: [id number]
== END | disposition home or self-care (01) ==
LOC: CT 15:02
PROVIDERS: Referring Provider Nurse Practitioner Family; Visit Provider Nurse Practitioner Family
DX: C32.9 Malignant neoplasm of larynx, unspecified (principal); C78.01 Secondary malignant neoplasm of right lung; C77.1 Secondary and unspecified malignant neoplasm of intrathoracic lymph nodes
CPT/HCPCS: 71260; Q9967

== ENCOUNTER → 2025-01-07 | Outpatient (CLI) | payer MEDICARE, MEDICAID, SELFPAY ==
--- NOTE | 2025-01-07 14:32 | CT_ITS ---
PROCEDURE: CT CHEST AND ABD W/ CONTRAST 01/07/2025 REASON FOR EXAM: LARYNX CA MET TO LUNG;ASSESS RESPONSE TO IMMUNOTHE TECHNIQUE: Chest and abdomen CT with intravenous contrast. Coronal and Sagittal reconstruction series were provided. One or more dose reduction techniques were used (e.g., Automated exposure control, adjustment of the mA and/or kV according to patient size, use of iterative reconstruction technique. PATIENT PREPARATION: Per protocol ORAL CONTRAST TYPE: None. CONTRAST: Isovue-300 VOLUME: 100mL RADIATION DOSE SUMMARY: CTDlvol: 7.5 mGy DLP: 794.28 mGycm COMPARISON: Prior study dated September 27, 2024. FINDINGS: CT CHEST: Hardware: A right-sided port a catheter is seen with the tip in the superior vena cava. Prior surgical intervention and placement of a tracheostomy. Lymph nodes: There is evidence of prior surgery in the region of the larynx with a tracheostomy. Heart and Vasculature: Coronary artery calcification. Lungs and Airways: Slight increase in size of the previously seen right hilar lymph node. Increased markings in the surrounding lung tissue. This has progressed. Slight decrease in size of the previously seen nodule in the right lower lobe. It presently measures 5.9 mm x 15.9 mm. Stable small right pleural effusion. Pleura: Stable small right pleural effusion. CT ABDOMEN: Liver: Diffuse fatty infiltration. Gallbladder: Multiple small layering gallstones. Spleen: Normal size. Pancreas: Normal size without evidence of mass surrounding inflammation or ductal dilation. Adrenals: Unremarkable Kidneys: Choose 1 stable small cyst in the upper pole of the left kidney. Diffuse bladder wall thickening. Bowel: Sigmoid diverticulosis. Lymph nodes: No enlarged lymph nodes are seen. Vasculature: Mild diffuse atherosclerotic calcifications are noted. Peritoneum / Retroperitoneum: Unremarkable Bones: Degenerative changes of the spine. CT/CT Chest AND Abd W/ Contrast IMPRESSION: Coronary artery calcification (CAC) is is present Mild increase in size of the right hilar lymph node. Slight decrease in size of the previously seen nodule in the right lower lobe. Persistent small right pleural effusion. Reading Location: [id number]
[2025-01-07] MEDS: 0.9% Saline Lock 10 ML Syringe IV (14:45)
== END | disposition home or self-care (01) ==
LOC: CT 14:26
PROVIDERS: Referring Provider Nurse Practitioner Family; Visit Provider Nurse Practitioner Family
DX: C32.9 Malignant neoplasm of larynx, unspecified (principal); C78.01 Secondary malignant neoplasm of right lung; C77.9 Secondary and unspecified malignant neoplasm of lymph node, unspecified
CPT/HCPCS: 71260; 74160; Q9967; A4216

== ENCOUNTER → 2025-05-06 | Outpatient (CLI) | payer MEDICARE, MEDICAID, SELFPAY ==
--- NOTE | 2025-05-06 13:05 | CT_ITS ---
PROCEDURE: CT CHEST AND ABD W/ CONTRAST 05/06/2025 REASON FOR EXAM: HEAD AND NECK CANCER TECHNIQUE: Chest and abdomen CT with intravenous contrast. Coronal and Sagittal reconstruction series were provided. One or more dose reduction techniques were used (e.g., Automated exposure control, adjustment of the mA and/or kV according to patient size, use of iterative reconstruction technique. PATIENT PREPARATION: Per protocol ORAL CONTRAST TYPE: None CONTRAST: Contrast Isovue-300 VOLUME: 93mL Gauge IV. RADIATION DOSE SUMMARY: CTDlvol: 33 mGy DLP: 801.74 mGycm COMPARISON: January 08, 2025 and March 29, 2024 CT scans FINDINGS: CT CHEST: Hardware: There are surgical clips at the anterior neck. IV contrast is administered with a percutaneous needle in a subcutaneous port at the anterior superior aspect of the right chest wall. The catheter of the port extends through the right internal jugular vein and its tip is at the distal SVC-right atrial junction. There is a tracheostomy tube in a tracheal stoma at the midline lower anterior neck. Lymph nodes, neck soft tissue, supraclavicular regions, and axillae: There has been a remote total laryngectomy, resection of the thyroid isthmus, and resection of the right thyroid lobe. The left thyroid lobe is diminutive. The patient is status-post left radical neck dissection and modified right neck dissection. There is no evidence of tumor recurrence at the neck level. There is no laryngeal prosthesis present. There is no evidence of axillary nor supraclavicular lymph node enlargement. There is slight edematous change in the fat of the right axilla. Heart and Vasculature: Heart is normal size. There are coronary artery calcifications. Atherosclerotic calcifications of the thoracic aorta. Pulmonary lumens are unremarkable. Lungs, pleura, and Airways: There is a 6.3 x 3.9 x 3.1 cm dumbbell-shaped, heterogeneously enhancing irregular mass extending from the lateral margin of the right mainstem bronchus to the central aspect of the left mid lung zone. This mass abuts the lateral aspect of the proximal pulmonary artery to the middle lobe and partially encases the proximal aspect of the pulmonary artery to the superior segment of the lower lobe of the right lung and partially encases the right superior pulmonary vein and 4 of its tributaries. There is an increase in the interstitial markings of the lung peripheral to the dominant lobe of this mass and there is diffuse thickening of the bronchus adjacent to and central to the dominant lobe of this mass. This mass was 5.8 x 2.7 x 2.1 cm on the January 07, 2025 CT scan. There is atelectasis extending laterally from the central right mid lung zone component to the lateral visceral pleura. There are a few strands of platelike atelectasis or fibrosis at the lung bases. There are emphysematous changes throughout both lungs. There is a 14 mm diameter heterogeneously enhancing mass in the posterior basal segment of the lower lobe of the right lung. This mass has a 1 cm long isthmus of tissue that retracts the posterior visceral pleura and focally thickens the regional parietal pleura. This mass was 15 mm in diameter on the January 07, 2025 CT examination. There is a minimal amount of secretions in the dependent aspect of the lumen of the lower trachea. There is a minimal dependent right pleural effusion and no left pleural effusion. There is no paratracheal lymph node enlargement. The visualized lower neck region shows no mass. CT ABDOMEN: Scanning was done from the top of the diaphragm to the top of the ischial spines. Liver: There is a 5 mm diameter near-water attenuation mass in the anterior- medial aspect of the medial hepatic segment (axial slice 106 on series 2). There is a 7 mm diameter circumscribed, near water attenuation subcapsular mass at the posterior superior aspect of the lateral hepatic segment (axial slice number 92 on series 2). These hepatic masses that show no change from 03-29-2024 are probably simple cysts. The liver is normal in size and shape and there is no intrahepatic biliary ductal dilatation. Gallbladder: There are multiple sub 4 mm diameter radiodense calculi in the dependent aspect of the gallbladder lumen. The gallbladder is otherwise unremarkable. Spleen: Normal size. Pancreas: Normal size without evidence of mass surrounding inflammation or ductal dilation. Adrenals: The adrenal glands appear normal. Kidneys: There is a 14 mm diameter subcapsular, near water attenuation, circumscribed, round mass protruding from the posterior-medial aspect of the upper pole of the left kidney. This mass is unchanged from January 07, 2025 and 03-29-2024. There is a small amount of bilateral perinephric edema. There is no hydronephrosis nor evidence of a urinary calculus. Bowel: There has been resection of the cecum, ascending colon and proximal transverse colon there is no gastric nor small bowel dilatation. There is slight gaseous tension of non dependent colonic segments which is consistent with a mild ileus. There is no bowel obstruction. Lymph nodes: There is a 6 x 11 mm homogeneous lymph node and a 7 mm diameter poorly marginated homogeneous lymph node are in the proximal small bowel mesentery. Vasculature: Slight to moderate diffuse atherosclerotic calcifications are noted at the aorta, common iliac arteries, and internal iliac arteries and posterior branches of the internal iliac arteries. Peritoneum / Retroperitoneum: Peritoneal the inferior aspect of the cul-de-sac is not projected on this examination. There is no ascites nor free intraperitoneal gas evident. Bones: Unremarkable. CT/CT Chest AND Abd W/ Contrast IMPRESSION: Coronary artery calcification (CAC) is present. The partially projected neck shows a total laryngectomy, part of a radical left neck dissection, and part of a modified radical right neck dissection with no evidence of local tumor recurrence. Bilobed mass in the right hemithorax is a central right lung metastasis that is larger than on prior CT studies and is contiguous right hilar adenopathy. 14 mm heterogeneous right lung nodule is a metastasis that is slightly smaller than on the January 07, 2025 examination. 2 hepatic masses and a left renal mass have been stable since the 03-29-2024 CT scan and are incidental cysts. Cholelithiasis. Coronary and aortoiliac atherosclerosis. Reading Location: [id number]
== END | disposition home or self-care (01) ==
LOC: CT 12:54
PROVIDERS: Referring Provider Internal Medicine Hematology & Oncology; Visit Provider Internal Medicine Hematology & Oncology
DX: C32.9 Malignant neoplasm of larynx, unspecified (principal); C77.1 Secondary and unspecified malignant neoplasm of intrathoracic lymph nodes; C77.9 Secondary and unspecified malignant neoplasm of lymph node, unspecified
CPT/HCPCS: 71260; 74160; Q9967